=== PATIENT | male | born 1945 | race Caucasian/White ===

== ENCOUNTER 2023-12-13 07:38 | Day surgery (SDC) | payer BC ==
[~2023-12-13] VITALS: Ht 172.7 cm; Wt 77.1 kg
[~2023-12-13 07:38] MED LIST: CEFAZOLIN 2 GM IVPB PREMIX 50 ML IV ONE
[2023-12-13] MEDS ORDERED: GLYCOPYRROLATE 0.2 MG/ML VIAL ONE (09:35)
[2023-12-13] MEDS ORDERED: PHENYLEPHRINE HCL 10 MG/ML VIAL (NEOSYNEPHRINE) ONE (09:35)
[2023-12-13] MEDS ORDERED: NS IRRIG SOLN 1000 ML IR ONE (09:35)
[2023-12-13] MEDS ORDERED: LR 1,000 ML IV.SOLN IV ONE (09:35)
[2023-12-13] MEDS ORDERED: KETOROLAC TROMETHAMINE 15 MG VIAL ONE (09:35)
[2023-12-13] MEDS ORDERED: BUPIVACAINE /PF 0.25% 10 ML VIAL INJ ONE (09:35)
[2023-12-13] MEDS ORDERED: MIDAZOLAM HCL 2 MG/2 ML VIAL (VERSED) ONE (09:35)
[2023-12-13] MEDS ORDERED: ROCURONIUM BROMIDE 10 MG/ML (ZEMURON) ONE (09:35)
[2023-12-13] MEDS ORDERED: METOCLOPRAMIDE HCL 10 MG/2 ML VIAL ONE (09:35)
[2023-12-13] MEDS ORDERED: PROPOFOL 200MG/ 20ML VIAL (DIPRIVAN) IV ONE (09:35)
[2023-12-13] MEDS ORDERED: SUCCINYLCHOLINE CHLORIDE 20 MG/ML(QUELICIN) ONE (09:35)
[2023-12-13] MEDS ORDERED: SEVOFLURANE 15 MIN GAS INH ONE (09:35)
[2023-12-13] MEDS ORDERED: HYDROmorphone 1 MG/ML INJ. CARTRIDGE IVP PRN (10:30)
[2023-12-13] MEDS ORDERED: ONDANSETRON HCL 4 MG/2 ML VIAL IVP PRN (10:30)
[2023-12-13] MEDS ORDERED: HYDROmorphone 2 MG/ML VIAL IVP PRN (10:30)
[2023-12-13] MEDS ORDERED: LR 1,000 ML IV SCH (10:30)
[2023-12-13] MEDS ORDERED: ACETAMINOPHEN I.V. 1000 MG 100 ML IV ONE (10:44)
[2023-12-13] MEDS ORDERED: D5/0.45 NS 1,000 ML IV SCH (11:00)
[2023-12-13 11:09] VITALS: O2SAT 95
[2023-12-13] MEDS: hydrALAZINE HCL 20 MG/ML VIAL IVP ONE (11:45)
[2023-12-13] MEDS ORDERED: hydrALAZINE HCL 20 MG/ML VIAL ONE (11:46)
[2023-12-13 13:41] VITALS: BP_SYST 131; PULSE 61; RESP 16; TEMP 97.1
[2023-12-13] MEDS ORDERED: HYDROcodone/ACETAMIN 5-325 MG TAB (NORCO/ VICODIN) PO PRN ×2 (16:30)
== END 2023-12-13 15:20 | disposition home or self-care (01) ==
LOC: SDS 07:38 → SMU 07:38 → SDS 15:20
PROVIDERS: ATTEND Colon & Rectal Surgery
DX: K40.30 Unilateral inguinal hernia, with obstruction, without gangrene, not specified as recurrent (principal); E11.40 Type 2 diabetes mellitus with diabetic neuropathy, unspecified; K21.9 Gastro-esophageal reflux disease without esophagitis; M10.9 Gout, unspecified; I13.0 Hypertensive heart and chronic kidney disease with heart failure and stage 1 through stage 4 chronic kidney disease, or unspecified chronic kidney disease; I50.20 Unspecified systolic (congestive) heart failure; E11.22 Type 2 diabetes mellitus with diabetic chronic kidney disease; N18.31 Chronic kidney disease, stage 3a; I25.10 Atherosclerotic heart disease of native coronary artery without angina pectoris; Z95.5 Presence of coronary angioplasty implant and graft; Z79.899 Other long term (current) drug therapy; Z90.49 Acquired absence of other specified parts of digestive tract
CPT/HCPCS: 87081; 49507; 82948; C1781; J3490 ×2; J0690; J0360; J1885; J2765; J3465; J2704; J0330; J7120; J0131